=== PATIENT | female | born 2000 | race Caucasian/White ===

== ENCOUNTER 2021-10-01 22:56 | Emergency (ER) | payer BC ==
[~2021-10-01] VITALS: Ht 167.6 cm; Wt 65.0 kg
[2021-10-01 23:15] VITALS: BP 139/85
[2021-10-01] MEDS ORDERED: PRENATAL1 TA1 PO (23:22)
[2021-10-01 23:30] VITALS: BP 117/77
[2021-10-01 23:41] LABS: URINE BILIRUBIN - DIPSTICK NEGATIVE (NEGATIVE); URINE BLOOD DIPSTICK NEGATIVE (NEGATIVE); URINE COLOR YELLOW; URINE GLUCOSE - DIPSTICK NEGATIVE (NEGATIVE); URINE KETONE NEGATIVE (NEGATIVE); URINE LEUK ESTERASE NEGATIVE (NEGATIVE); URINE PH 6.5 (4.5-8.0); URINE PROTEIN - DIPSTICK NEGATIVE (NEG-TRACE); URINE SPECIFIC GRAVITY <=1.005; URINE UROBILINOGEN - DIPSTICK 0.2 E.U./dL (0.2)
[2021-10-01 23:42] LABS: HEMATOCRIT 34.7 % (37.0-47.0); HEMOGLOBIN 12.3 g/dl (12.0-16.0); IMMATURE GRANULOCYTES 0.2 % (0.0-5.0); MEAN CORPUSCULAR HGB 32.3 pG CALC (26.0-32.0); MEAN CORPUSCULAR HGB CONC 35.4 g/dL CAL (32.0-36.0); NEUT# 7.93 thou/uL (2.00-7.15); RED BLOOD COUNT 3.81 mill/uL (4.20-5.60); RED CELL DISTRI WIDTH 12.2 % (11.5-15.5)
[2021-10-01 23:44] LABS: MEAN CELL VOLUME 91.1 fL CALC (80.0-100.0); URINE NITRITE - DIPSTICK NEGATIVE (Negative)
[2021-10-01 23:45] VITALS: BP 115/78
[2021-10-02] VITALS: BP 126/86
[2021-10-02] LABS: ANION GAP 15 (6-22 (CALC)); BILIRUBIN, TOTAL 0.3 mg/dL (0.0-1.4); BUN 10 mg/dL (7-17); BUN/CREATININE RATIO 21 (12-20 (CALC)); CARBON DIOXIDE 22 mmol/l (22-30); CHLORIDE 105 mmol/l (95-108); CREATININE 0.5 mg/dL (0.5-1.0); GFR FOR AFR.AMER. > 60 ML/MIN (>=60 (CALC)); GFR OTHER RACES > 60 ML/MIN (>=60 (CALC)); POTASSIUM 4.1 mmol/l (3.5-5.1); SGOT/AST 23 u/l (14-36); SODIUM 137 mmol/l (137-146); TOTAL PROTEIN 7.7 g/dL (6.3-8.2)
[2021-10-02 00:13] LABS: ALBUMIN 4.3 g/dL (3.2-5.0); ALKALINE PHOSPHATASE 80 u/l (38-126)
[2021-10-02 00:15] VITALS: BP 120/77
[2021-10-02 00:32] VITALS: BP 123/79
[2021-10-02 00:37] LABS: TSH, 3RD GENERATION 2.99 uIU/mL (0.47 - 4.68)
[2021-10-02 00:45] VITALS: BP 112/75
== END 2021-10-02 00:50 | disposition home or self-care (01) | DRG 833 ==
LOC: ED 22:56
PROVIDERS: Family Medicine
DX: O26.899 Other specified pregnancy related conditions, unspecified trimester (principal); R10.9 Unspecified abdominal pain; Z3A.00 Weeks of gestation of pregnancy not specified

== ENCOUNTER 2022-02-28 00:08 | Emergency (ER) | payer BC ==
[2022-02-28] VITALS (9 sets, daily range): BP systolic 94–127; BP diastolic 58–85
[~2022-02-28] VITALS: Ht 167.6 cm; Wt 57.1 kg
[~2022-02-28 00:08] MED LIST: PRENATAL1 TA1 PO
[2022-02-28 01:22] LABS: BASO% 0.4 % (0-3); EOS% 3.3 % (0-8); HEMATOCRIT 38.7 % (37.0-47.0); HEMOGLOBIN 13.2 g/dl (12.0-16.0); IMMATURE GRANULOCYTES 0.4 % (0.0-5.0); LYMPH% 27.7 % (15-41); MEAN CELL VOLUME 87.2 fL CALC (80.0-100.0); MEAN CORPUSCULAR HGB 29.7 pG CALC (26.0-32.0); MEAN CORPUSCULAR HGB CONC 34.1 g/dL CAL (32.0-36.0); MONO% 12.2 % (2-13); NEUT# 3.04 thou/uL (2.00-7.15); RED BLOOD COUNT 4.44 mill/uL (4.20-5.60); RED CELL DISTRI WIDTH 11.2 % (11.5-15.5)
[2022-02-28 01:36] LABS: ALBUMIN 4.5 g/dL (3.2-5.0); ALKALINE PHOSPHATASE 70 u/l (38-126); ANION GAP 12 (6-22 (CALC)); BILIRUBIN, TOTAL 0.2 mg/dL (0.0-1.4); BUN 19 mg/dL (7-17); BUN/CREATININE RATIO 18 (12-20 (CALC)); CHLORIDE 104 mmol/l (95-108); CREATININE 1.1 mg/dL (0.5-1.0); GFR FOR AFR.AMER. > 60 ML/MIN (>=60 (CALC)); GFR OTHER RACES > 60 ML/MIN (>=60 (CALC)); POTASSIUM 3.9 mmol/l (3.5-5.1); SGOT/AST 28 u/l (14-36); SODIUM 142 mmol/l (137-146); TOTAL PROTEIN 7.3 g/dL (6.3-8.2)
[2022-02-28 01:38] LABS: CARBON DIOXIDE 30 mmol/l (22-30)
[2022-02-28 02:47] LABS: URINE BILIRUBIN - DIPSTICK NEGATIVE (NEGATIVE); URINE BLOOD DIPSTICK TRACE-INTACT (NEGATIVE); URINE COLOR YELLOW; URINE GLUCOSE - DIPSTICK NEGATIVE (NEGATIVE); URINE KETONE NEGATIVE (NEGATIVE); URINE LEUK ESTERASE SMALL (NEGATIVE); URINE NITRITE - DIPSTICK NEGATIVE (Negative); URINE SPECIFIC GRAVITY >=1.030; URINE UROBILINOGEN - DIPSTICK 0.2 E.U./dL (0.2)
[2022-02-28 02:48] LABS: URINE PROTEIN - DIPSTICK NEGATIVE (NEG-TRACE)
[2022-02-28 02:53] LABS: URINE EPITHELIAL CELLS FEW EPI/hpf (0-FEW)
[2022-02-28 02:54] LABS: URINE BACTERIA MODERATE hpf
[2022-02-28] MEDS ORDERED: MACRODANTIN100 MG PO ×2 (03:06→03:10)
== END 2022-02-28 03:35 | disposition home or self-care (01) | DRG 194 ==
LOC: ED 00:08
PROVIDERS: Emergency Medicine
DX: R09.1 Pleurisy (principal); N39.0 Urinary tract infection, site not specified; R00.0 Tachycardia, unspecified